=== PATIENT | male | born 2000 | race Caucasian/White ===

== ENCOUNTER 2023-11-17 08:20 | Emergency (ER) | payer MEDICAID ==
[~2023-11-17] VITALS: Ht 188 cm; Wt 107.5 kg
[2023-11-17 08:30] VITALS: BP 125/87; PULSE 89; RESP 17; TEMP 98.5; O2SAT 97
[2023-11-17] MEDS ORDERED: ONDA-188 SL (09:29)
[2023-11-17] MEDS ORDERED: MAG355OR2 PO (09:29)
[2023-11-17] MEDS ORDERED: ALUMINUM HYD/MAG/SIMETHICONE 30 ML UDC ONE (09:38)
[2023-11-17] MEDS ORDERED: DICYCLOMINE HCL LIQUID 10 MG/5 ML UDC ONE (09:38)
[2023-11-17] MEDS: DICYCLOMINE HCL LIQUID 20 MG, ALUMINUM HYD/MAG/SIMETHICONE 30 ML, LIDOCAINE VISCOUS 2% ... PO ONE (09:42)
[2023-11-17] MEDS: ONDANSETRON 4 MG ODT PO ONE (09:42)
[2023-11-17 09:53] VITALS: BP 131/76; PULSE 84; RESP 16; TEMP 98.3; O2SAT 99
== END 2023-11-17 09:53 | disposition home or self-care (01) ==
LOC: MED 08:20
DX: R11.2 Nausea with vomiting, unspecified (principal); R10.13 Epigastric pain; Z71.6 Tobacco abuse counseling
CPT/HCPCS: 99283; Q0162; 99406